=== PATIENT | female | born 1990 | race Caucasian/White ===

== ENCOUNTER 2023-03-09 07:59 | Emergency (ER) | payer OTHER ==
[~2023-03-09] VITALS: Ht 152.4 cm; Wt 46.7 kg
[2023-03-09 10:34] LABS: URINE APPEARANCE Clear; URINE BILIRRUBIN Negative (NEGATIVE); URINE BLOOD Negative; URINE COLOR Yellow; URINE GLUCOSE Negative (NEGATIVE); URINE LEUKOCYTE Trace; URINE NITRATE Negative; URINE PROTEIN Negative (NEGATIVE); URINE UROBILINOGEN 0.2 E.U./dl
[2023-03-09 10:35] LABS: HEMATOCRIT 29.2 % (36.0-45.00); HEMOGLOBIN 9.7 g/dL (12.0-15.00); MEAN CELL VOLUME 77.4 fL (80.00-100.00); MEAN CORPUSCULAR HEMOGLOBIN 25.7 pg (27.00-32.0); MEAN CORPUSCULAR HGB CONC 33.2 g/dl (32.0-36.0); PLATELET COUNT 150 K/uL (150-450); RED BLOOD COUNT 3.77 M/uL (4.00-6.00)
[2023-03-09 10:39] LABS: URINE BACTERIA 55.3 uL (0.0-1933); URINE EPITHELIAL CELLS 9.8 uL (0.0-38.8); URINE WBC 32.8 uL (0.0-23.2)
[2023-03-09 10:40] LABS: RED CELL DISTRIBUTION WIDTH 17.8 % (11.5-14.5)
[2023-03-09 11:46] LABS: CALCIUM 8.8 mg/dL (8.5-10.1); CREATININE SERUM 0.47 mg/dL (0.55-1.02); GFR 154.56; POTASSIUM 3.83 mEq/L (3.5-5.1)
== END 2023-03-09 12:10 | disposition left against medical advice (07) ==
LOC: ER 07:59
PROVIDERS: Emergency Medicine
DX: O20.8 Other hemorrhage in early pregnancy (principal); Z3A.01 Less than 8 weeks gestation of pregnancy

== ENCOUNTER 2023-04-24 05:20 | Emergency (ER) | payer OTHER ==
[~2023-04-24] VITALS: Ht 152.4 cm; Wt 48.5 kg
[2023-04-24 06:16] LABS: HEMATOCRIT 30.3 % (36.0-45.00); HEMOGLOBIN 10.1 g/dL (12.0-15.00); MEAN CELL VOLUME 79.1 fL (80.00-100.00); MEAN CORPUSCULAR HEMOGLOBIN 26.4 pg (27.00-32.0); MEAN CORPUSCULAR HGB CONC 33.4 g/dl (32.0-36.0); PLATELET COUNT 157 K/uL (150-450); RED BLOOD COUNT 3.83 M/uL (4.00-6.00); RED CELL DISTRIBUTION WIDTH 16.6 % (11.5-14.5)
== END 2023-04-24 12:59 | disposition home or self-care (01) ==
LOC: ER 05:20
DX: O21.0 Mild hyperemesis gravidarum (principal); Z3A.15 15 weeks gestation of pregnancy

== ENCOUNTER 2023-05-13 10:06 | Emergency (ER) | payer OTHER ==
[~2023-05-13] VITALS: Ht 152.4 cm; Wt 49.4 kg
[2023-05-13] MEDS ORDERED: OBSTETRIX ONE CAPSUL (10:35)
[2023-05-13 11:17] LABS: URINE APPEARANCE Cloudy; URINE BILIRRUBIN Negative (NEGATIVE); URINE BLOOD Negative; URINE COLOR Yellow; URINE GLUCOSE Negative (NEGATIVE); URINE LEUKOCYTE Small; URINE NITRATE Negative; URINE PROTEIN Negative (NEGATIVE)
[2023-05-13 11:20] LABS: URINE BACTERIA 8101.4 uL (0.0-1933); URINE EPITHELIAL CELLS 198.7 uL (0.0-38.8); URINE RBC 8.7 uL (0.0-20.8); URINE WBC 50.2 uL (0.0-23.2)
[2023-05-13 11:29] LABS: HEMATOCRIT 31.5 % (36.0-45.00); HEMOGLOBIN 10.4 g/dL (12.0-15.00); MEAN CELL VOLUME 82.9 fL (80.00-100.00); MEAN CORPUSCULAR HEMOGLOBIN 27.4 pg (27.00-32.0); MEAN CORPUSCULAR HGB CONC 33.1 g/dl (32.0-36.0)
[2023-05-13 11:30] LABS: PLATELET COUNT 128 K/uL (150-450)
[2023-05-13 12:21] LABS: RED CELL DISTRIBUTION WIDTH 21.6 % (11.5-14.5)
== END 2023-05-13 13:38 | disposition home or self-care (01) ==
LOC: ER 10:06
PROVIDERS: Emergency Medicine
DX: O23.42 Unspecified infection of urinary tract in pregnancy, second trimester (principal); N39.0 Urinary tract infection, site not specified; Z3A.17 17 weeks gestation of pregnancy

== ENCOUNTER 2023-08-10 14:03 | Outpatient (CLI) | payer OTHER ==
[~2023-08-10 14:03] MED LIST: OBSTETRIX ONE CAPSUL
== END 2023-08-10 14:30 | disposition home or self-care (01) ==
LOC: OBS/DEL 14:03
PROVIDERS: ATTEND Specialist
DX: O47.03 False labor before 37 completed weeks of gestation, third trimester (principal); Z3A.30 30 weeks gestation of pregnancy

== ENCOUNTER 2023-12-24 18:20 | Emergency (ER) | payer OTHER ==
[~2023-12-24] VITALS: Ht 152.4 cm; Wt 52.6 kg
[2023-12-24] MEDS ORDERED: PRENATAL + DHA1 EAC1 (18:49)
[2023-12-24 20:40] LABS: PH,URINE 7.5 (5.0-8.0); URINE APPEARANCE Clear; URINE BILIRRUBIN Negative (NEGATIVE); URINE BLOOD Small; URINE COLOR Yellow; URINE GLUCOSE Negative (NEGATIVE); URINE KETONE Negative (NEGATIVE); URINE LEUKOCYTE Moderate; URINE NITRATE Positive; URINE PROTEIN Negative (NEGATIVE); URINE UROBILINOGEN 0.2 E.U./dl
[2023-12-24 20:50] LABS: URINE BACTERIA > 9821.5 uL (0.0-1933); URINE CAST 0.15 uL (0.0-1.40); URINE EPITHELIAL CELLS 1.2 uL (0.0-38.8); URINE RBC 1.8 uL (0.0-20.8)
== END 2023-12-24 21:22 | disposition left against medical advice (07) ==
LOC: ER 18:20
PROVIDERS: Nurse Practitioner Family
DX: N93.9 Abnormal uterine and vaginal bleeding, unspecified (principal)